=== PATIENT | female | born 1945 | race Caucasian/White ===

== ENCOUNTER 2019-01-28 14:07 | Emergency (ER) | payer MEDICARE, BC ==
[2019-01-28] MEDS ORDERED: Sodium Chloride 0.9% 10 ML Syringe FLUSH PRN (15:03)
--- NOTE | 2019-01-28 17:12 | EDM.PDOC ---
ED HPI GENERAL MEDICAL PROBLEM - General Chief Complaint: Cardiovascular Problem Stated Complaint: DIZZY & RUBBERY LEGS Time Seen by Provider: 01/28/19 14:45 Source of Information: Reports: Patient History Limitations: Reports: No Limitations - History of Present Illness INITIAL COMMENTS - FREE TEXT/NARRATIVE: 73-year-old female presents for evaluation and treatment of dizziness and "rubbery legs ". Patient reports that she was walking around the track yesterday around 8 AM when she felt what she initially describes as a dizziness but upon further investigation was more lightheadedness. She states that her legs felt jellylike. She reports again today while shopping with her family she became lightheaded and felt that her legs are rubbery and she might fall. She denies any chest pain, shortness of breath, headaches, vision changes, nausea, vomiting, abdominal pain, diarrhea, blood in her stools, fevers, chills, sore throat or any syncope. Patient states she's never had anything like this before. States she is only experiencing the lightheadedness when she is up and moving around, nothing at rest. She states that she has a history of irregular heartbeat, but this is not A. fib. Patient reports she is a bulging disc in her neck, she is unsure at what level this is at. At this point no plans for surgery on her neck. She is not on any blood thinning medications. Patient which had a colonoscopy about 1years ago. Patient sees Dr. Valdez at [facility] in [place]. Patient is also concerned about her blood pressure. 168/78 upon arrival the ER. She states normally her systolic is 120s to 130s. Upper Neck Pain Score (Numeric/FACES): 3 - Related Data Allergies Allergy/AdvReac Type Severity Reaction Status Date / Time sulfamethoxazole Allergy Hives Verified 01/28/19 14:22 [From Bactrim] trimethoprim [From Bactrim] Allergy Hives Verified 01/28/19 14:22 Home Meds: Home Meds . [Unable to Verify Home Med List] 01/28/19 [History] Past Medical History Cardiovascular History: Reports: High Cholesterol Gastrointestinal History: Reports: Other (See Below) Other Gastrointestinal History: anal fissure Musculoskeletal History: Reports: Other (See Below) Other Musculoskeletal History: osteopennia - Past Surgical History HEENT Surgical History: Reports: Cataract Surgery Social & Family History - Tobacco Use Smoking Status *Q: Never Smoker - Caffeine Use Caffeine Use: Reports: Coffee - Recreational Drug Use Recreational Drug Use: No ED ROS GENERAL - Review of Systems Review Of Systems: See Below Constitutional: Denies: Fever, Chills HEENT: Denies: Ear Pain, Throat Pain Respiratory: Denies: Shortness of Breath Cardiovascular: Reports: Blood Pressure Problem, Lightheadedness. Denies: Chest Pain, Palpitations, Syncope GI/Abdominal: Denies: Abdominal Pain, Diarrhea, Hematochezia, Melena, Nausea, Vomiting Musculoskeletal: Denies: Neck Pain (Chronic neck pain, nothing of normal) Neurological: Denies: Dizziness (Initially reports dizziness upon further investigation describes more lightheadedness.), Headache, Syncope ED EXAM, GENERAL - Physical Exam Exam: See Below Exam Limited By: No Limitations General Appearance: Alert, WD/WN, No Apparent Distress Eye Exam: Bilateral Eye: EOMI, Normal Inspection, PERRL Ears: Normal External Exam, Normal Canal, Hearing Grossly Normal, Normal TMs Ear Exam: Bilateral Ear: TM normal Nose: Normal Inspection Throat/Mouth: Normal Inspection, Normal Lips, Normal Oropharynx, Normal Voice, No Airway Compromise Neck: Normal Inspection Respiratory/Chest: No Respiratory Distress, Lungs Clear, Normal Breath Sounds Cardiovascular: Normal Peripheral Pulses, Regular Rate, Rhythm, No Murmur Peripheral Pulses: 3+: Radial (L), Radial (R), Dorsalis Pedis (L), Dorsalis Pedis (R) GI/Abdominal: Normal Bowel Sounds, Soft, Non-Tender Extremities: Normal Inspection Neurological: Alert, Oriented, CN II-XII Intact, Normal Cognition, Other ( Normal heel to douglas testing, normal finger-nose testing. No pronator drift. Credentials Specialist strength, dorsiflexion and plantar flexion are 5 out of 5 bilaterally. No drift to the upper extremities or lower extremities.) Psychiatric: Normal Affect, Normal Mood Skin Exam: Warm, Dry, Normal Color EKG INTERPRETATION EKG Date: 01/28/19 Time: 15:24 Rhythm: NSR Rate (Beats/Min): 66 [place]: LAD-Left [place] Deviation P-Wave: Present QRS: Normal ST-T: Normal QT: Prolonged (mildly prolonged) EKG Interpretation Comments: NSR at 66 bpm. Consider left atrial hypertrophy. LAD (-31 degrees), p wave inverted in V1. QTc mildly prolonged with a QTc of 461. Reviewed by myself and Dr. Tejada. Course - Vital Signs Last Recorded V/S: Last Vital Signs Temp 96.8 F 01/28/19 14:21 Pulse 82 01/28/19 14:21 Resp 20 01/28/19 14:21 BP 168/74 H 01/28/19 14:21 Pulse Ox 99 01/28/19 14:21 Orthostatic Blood Pressure [ 164/80 Standing] Orthostatic Blood Pressure [ 165/77 Sitting] Orthostatic Blood Pressure [ 149/67 Supine] - Orders/Labs/Meds Orders: Active Orders 24 hr Category Date Time Status Cardiac Monitoring [RC] . DIRECTED Care 01/28/19 15:01 Active EKG Documentation Completion [RC] ASDIRECTED Care 01/28/19 15:02 Active Orthostatic Vital Signs [RC] ASDIRECTED Care 01/28/19 15:01 Active Peripheral IV Care [RC] . DIRECTED Care 01/28/19 15:03 Active Chest 2V [CR] Stat Exams 01/28/19 15:01 Taken Peripheral IV Insertion Adult [OM.PC] Routine Oth 01/28/19 15:03 Ordered EKG 12 Lead [EK] Stat Ther 01/28/19 15:01 Ordered Labs: Laboratory Tests 01/28/19 01/28/19 01/28/19 Range/Units 13:54 14:30 14:30 WBC 7.04 (3.98-10.04) K/mm3 RBC 4.58 (3.98-5.22) M/mm3 Hgb 14.3 (11.2-15.7) gm/L Hct 44.1 (34.1-44.9) % MCV 96.3 H (79.4-94.8) fl MCH 31.2 (25.6-32.2) pg MCHC 32.4 (32.2-35.5) g/dl RDW Std Deviation 49.3 H (36.4-46.3) fL Plt Count 264 (182-369) K/mm3 MPV 10.3 (9.4-12.3) fl Neutrophils % (Manual) 66 H (40-60) % Band Neutrophils % 0 (0-10) % Lymphocytes % (Manual) 21 (20-40) % Atypical Lymphs % 0 % Monocytes % (Manual) 12 H (2-10) % Eosinophils % (Manual) 1 (0.7-5.8) % Basophils % (Manual) 0 L (0.1-1.2) Platelet Estimate Adequate Plt Morphology Comment Normal RBC Morph Comment Normal Sodium 140 (136-145) mEq/L Potassium 3.5 (3.5-5.1) mEq/L Chloride 103 (98-107) mEq/L Carbon Dioxide 29 (21-32) mEq/L Anion Gap 11.5 (5-15) BUN 15 (7-18) mg/dL Creatinine 0.9 (0.55-1.02) mg/dL Est Cr Clr Drug Dosing 50.84 mL/min Estimated GFR (MDRD) > 60 (>60) mL/min BUN/Creatinine Ratio 16.7 (14-18) Glucose 110 (83-115) mg/dL Calcium 9.6 (8.5-10.1) mg/dL Magnesium 2.3 (1.8-2.4) mg/dl Total Bilirubin 0.3 (0.2-1.0) mg/dL AST 36 (15-37) U/L ALT 52 (14-59) U/L Alkaline Phosphatase 82 (46-116) U/L Troponin I (0.00-0.056) ng/mL Total Protein 7.7 (6.4-8.2) g/dl Albumin 4.1 (3.4-5.0) g/dl Globulin 3.6 gm/dL Albumin/Globulin Ratio 1.1 (1-2) TSH 3rd Generation 2.693 (0.358-3.74) uIU/mL Urine Color Yellow (Yellow) Urine Appearance Clear (Clear) Urine pH 8.0 (5.0-8.0) Ur Specific [place] 1.020 (1.005-1.030) Urine Protein Negative (Negative) Urine Glucose (UA) Negative (Negative) Urine Ketones Negative (Negative) Urine Occult Blood Negative (Negative) Urine Nitrite Negative (Negative) Urine Bilirubin Negative (Negative) Urine Urobilinogen 0.2 (0.2-1.0) Ur Leukocyte Esterase Negative (Negative) Urine RBC Not seen (0-5) /hpf Urine WBC Not seen (0-5) /hpf Ur Epithelial Cells 0-5 (0-5) /hpf Urine Bacteria Not seen (FEW) /hpf Urine Mucus Not seen (FEW) /hpf 01/28/19 Range/Units 14:30 WBC (3.98-10.04) K/mm3 RBC (3.98-5.22) M/mm3 Hgb (11.2-15.7) gm/L Hct (34.1-44.9) % MCV (79.4-94.8) fl MCH (25.6-32.2) pg MCHC (32.2-35.5) g/dl RDW Std Deviation (36.4-46.3) fL Plt Count (182-369) K/mm3 MPV (9.4-12.3) fl Neutrophils % (Manual) (40-60) % Band Neutrophils % (0-10) % Lymphocytes % (Manual) (20-40) % Atypical Lymphs % % Monocytes % (Manual) (2-10) % Eosinophils % (Manual) (0.7-5.8) % Basophils % (Manual) (0.1-1.2) Platelet Estimate Plt Morphology Comment RBC Morph Comment Sodium (136-145) mEq/L Potassium (3.5-5.1) mEq/L Chloride (98-107) mEq/L Carbon Dioxide (21-32) mEq/L Anion Gap (5-15) BUN (7-18) mg/dL Creatinine (0.55-1.02) mg/dL Est Cr Clr Drug Dosing mL/min Estimated GFR (MDRD) (>60) mL/min BUN/Creatinine Ratio (14-18) Glucose (83-115) mg/dL Calcium (8.5-10.1) mg/dL Magnesium (1.8-2.4) mg/dl Total Bilirubin (0.2-1.0) mg/dL AST (15-37) U/L ALT (14-59) U/L Alkaline Phosphatase (46-116) U/L Troponin I < 0.017 (0.00-0.056) ng/mL Total Protein (6.4-8.2) g/dl Albumin (3.4-5.0) g/dl Globulin gm/dL Albumin/Globulin Ratio (1-2) TSH 3rd Generation (0.358-3.74) uIU/mL Urine Color (Yellow) Urine Appearance (Clear) Urine pH (5.0-8.0) Ur Specific [place] (1.005-1.030) Urine Protein (Negative) Urine Glucose (UA) (Negative) Urine Ketones (Negative) Urine Occult Blood (Negative) Urine Nitrite (Negative) Urine Bilirubin (Negative) Urine Urobilinogen (0.2-1.0) Ur Leukocyte Esterase (Negative) Urine RBC (0-5) /hpf Urine WBC (0-5) /hpf Ur Epithelial Cells (0-5) /hpf Urine Bacteria (FEW) /hpf Urine Mucus (FEW) /hpf Meds: Medications Discontinued Medications Generic Name Dose Route Start Last Admin Trade Name Freq PRN Reason Stop Dose Admin Sodium Chloride 10 ml 01/28/19 15:03 01/28/19 15:30 Saline Flush FLUSH 10 ml ASDIRECTED PRN Administration Keep Vein Open - Radiology Interpretation Free Text/Narrative:: Chest x-ray shows no acute intrathoracic process. Reviewed by myself and Dr. Tejada. Formal radiology read pending. - Re-Assessments/Exams Free Text/Narrative Re-Assessment/Exam: 01/28/19 17:04 I reviewed the labs and EKG and imaging with the patient. She's not had any arrhythmias while on the monitor here. Discussed a 48 hour Holter monitor. I do feel this would be an appropriate next step. She would like to follow-up with her primary care provider first and discuss this further with him. I feel this would be appropriate and would ensure that he would obtain the results. We will discharge her home tonight. She is encouraged to return to the ER for symptoms change or worsen. Discharge instructions as documented. Departure - Departure Time of Disposition: 17:10 Disposition: Home, Self-Care 01 Condition: Fair Clinical Impression: Lightheaded, Elevated blood pressure reading Instructions: Hypertension Referrals: Seth Valdez MD [Primary Care Provider] - Forms: ED Department Discharge Additional Instructions: Follow-up with your primary care provider this week or next week for recheck of your symptoms. Recommend discussing obtaining a Holter monitor to further evaluate your lightheadedness. make sure you are drinking plenty of fluids. Please return to ER for symptoms change or worsen. - My Orders Last 24 Hours: My Active Orders 01/28/19 15:01 Cardiac Monitoring [RC] . DIRECTED Orthostatic Vital Signs [RC] ASDIRECTED Chest 2V [CR] Stat EKG 12 Lead [EK] Stat 01/28/19 15:02 EKG Documentation Completion [RC] ASDIRECTED 01/28/19 15:03 Peripheral IV Care [RC] . DIRECTED Peripheral IV Insertion Adult [OM.PC] Routine - Assessment/Plan Last 24 Hours: My Active Orders 01/28/19 15:01 Cardiac Monitoring [RC] . DIRECTED Orthostatic Vital Signs [RC] ASDIRECTED Chest 2V [CR] Stat EKG 12 Lead [EK] Stat 01/28/19 15:02 EKG Documentation Completion [RC] ASDIRECTED 01/28/19 15:03 Peripheral IV Care [RC] . DIRECTED Peripheral IV Insertion Adult [OM.PC] Routine
--- NOTE | 2019-01-29 08:04 | CR ---
Chest: Two views of the chest were obtained. Comparison: No prior chest x-ray. 1.6 cm nodular density is noted within the left mid chest. Lungs otherwise are clear. Heart size at the upper limits of normal. Tortuous thoracic aorta is seen. Diaphragms are slightly flattened on the lateral view. Degenerative endplate spurring is noted within the spine. Impression: 1. Left midlung nodule. Noncontrast chest CT recommended to exclude chest mass. 2. Probable emphysematous change and other incidental findings. Diagnostic code #9
== END 2019-01-28 17:27 | disposition home or self-care (01) ==
LOC: JD.ED 14:07
DX: R03.0 Elevated blood-pressure reading, without diagnosis of hypertension (principal); R42 Dizziness and giddiness; Z88.2 Allergy status to sulfonamides
CPT/HCPCS: 36415; 71046; 71046-26; 80053; 81001; 83735; 84443; 84484; 85007; 85027; 93005; 99284-25